=== PATIENT | male | born 1960 | race Caucasian/White ===

== ENCOUNTER 2020-03-06 11:34 | Emergency (ER) | payer MEDICARE, OTHER ==
[~2020-03-06] VITALS: Ht 188 cm; Wt 77.1 kg
[~2020-03-06 11:34] MED LIST: CYCL10 PO; HYDACE5 PO; IBUP800 PO; Keflex500 MG PO; PRED10 PO; Prilosec Otc20 MG PO; Zofran8 MG PO
[2020-03-06 12:42] LABS: BASOPHILS ABSOLUTE AUTO 0.04 K/mm3 (0.00-0.23); BASOPHILS PERCENT AUTO 0 % (0-2); EOSINOPHILS PERCENT AUTO 0 % (0-6); Hematocrit 45.4 % (37.0-53.0); Hemoglobin 15.9 g/dL (13.5-17.5); IMMATURE GRAN ABSOLUTE AUTO 0.05 K/mm3 (0.00-0.10); IMMATURE GRAN PERCENT AUTO 0 % (0-1); LYMPHOCYTES ABSOLUTE AUTO 0.58 K/mm3 (0.84-5.20); LYMPHOCYTES PERCENT AUTO 4 % (21-46); MONOCYTES PERCENT AUTO 4 % (4-13); Mean Corpuscular Volume 111 fL (80-100); Mean Platelet Volume 10.4 fL (9.1-12.4); NEUTROPHILS ABSOLUTE AUTO 13.44 K/mm3 (1.96-9.15); NEUTROPHILS PERCENT AUTO 91 % (41-73); Platelet Count 164 K/mm3 (150-400); RDW Standard Deviation 58.9 fL (35.1-46.3); Red Blood Cell Count 4.08 M/mm3 (4.30-5.90); White Blood Cell Count 14.71 K/mm3 (4.00-11.30)
[2020-03-06 12:50] LABS: Alanine Aminotransfer (ALT/SGP 49 U/L (12-78); Albumin, Blood 3.7 g/dL (3.4-5.0); Alk Phos 146 U/L (50-136); Anion Gap 12 mmol/L (6-16); Aspartate Aminotrans (AST/SGOT 80 U/L (12-37); Bilirubin, Total 1.4 mg/dL (0.1-1.0); Blood Urea Nitrogen 5 mg/dL (8-24); Bun/Creatinine Ratio 14.4 (12.0-20.0); CO2, Blood 24 mmol/L (21-32); Calcium, Blood 8.9 mg/dL (8.5-10.1); Chloride, Blood 101 mmol/L (98-108); Creatinine, Blood 0.35 mg/dL (0.60-1.20); Globulin, Blood 3.7 g/dL (2.2-4.0); Glomerular Filtration Rate >60 (60-); Glucose, Blood 96 mg/dL (70-99); Potassium, Blood 3.7 mmol/L (3.5-5.5); Sodium, Blood 137 mmol/L (136-145); Total Protein, Blood 7.4 g/dL (6.4-8.2)
[2020-03-06] MEDS ORDERED: Hydrochlorothia50 MG PO (14:57)
== END 2020-03-06 15:25 | disposition home or self-care (01) ==
LOC: ER 11:34
PROVIDERS: Emergency Medicine
DX: R04.0 Epistaxis (principal); I10 Essential (primary) hypertension; F17.200 Nicotine dependence, unspecified, uncomplicated; Z88.1 Allergy status to other antibiotic agents
CPT/HCPCS: 30903; 36415; 80053; 85025; 99283-25

== ENCOUNTER 2020-04-25 08:23 | Day surgery (SDC) | payer MEDICARE, OTHER ==
[~2020-04-25] VITALS: Ht 188 cm; Wt 89.2 kg
[~2020-04-25 08:23] MED LIST changes: +Hydrochlorothia50 MG PO
--- NOTE | 2020-04-25 09:07 | NUR ---
04/25/20 0907 Marilyn Martin CALL LIGHT WITHIN REACH
== END 2020-04-25 10:42 | disposition home or self-care (01) ==
LOC: ORSCSDS 08:23
PROVIDERS: Ophthalmology
PROC: 08RK3JZ Replacement of Left Lens with Synthetic Substitute, Percutaneous Approach (ICD-10-PCS; principal; 2020-04-25 10:00)
DX: H25.12 Age-related nuclear cataract, left eye (principal); H21.81 Floppy iris syndrome; I10 Essential (primary) hypertension; F17.210 Nicotine dependence, cigarettes, uncomplicated
CPT/HCPCS: J2001; J2250; J3010; J3301; J7040; V2632

== ENCOUNTER 2020-05-20 16:11 | Emergency (ER) | payer MEDICARE, OTHER ==
[~2020-05-20] VITALS: Ht 185.4 cm; Wt 86.2 kg
[2020-05-20 17:20] LABS: BASOPHILS ABSOLUTE AUTO 0.01 K/mm3 (0.00-0.23); BASOPHILS PERCENT AUTO 0 % (0-2); EOSINOPHILS ABSOLUTE AUTO 0.02 K/mm3 (0.00-0.68); EOSINOPHILS PERCENT AUTO 0 % (0-6); Hematocrit 45.6 % (37.0-53.0); Hemoglobin 16.1 g/dL (13.5-17.5); IMMATURE GRAN ABSOLUTE AUTO 0.05 K/mm3 (0.00-0.10); IMMATURE GRAN PERCENT AUTO 1 % (0-1); LYMPHOCYTES ABSOLUTE AUTO 1.21 K/mm3 (0.84-5.20); LYMPHOCYTES PERCENT AUTO 11 % (21-46); MONOCYTES ABSOLUTE AUTO 1.36 K/mm3 (0.16-1.47); MONOCYTES PERCENT AUTO 13 % (4-13); Mean Corpuscular HGB 36.4 pg (26.0-34.0); Mean Corpuscular HGB Conc 35.3 g/dL (31.5-36.5); Mean Corpuscular Volume 103 fL (80-100); Mean Platelet Volume 11.3 fL (9.1-12.4); NEUTROPHILS ABSOLUTE AUTO 8.12 K/mm3 (1.96-9.15); NEUTROPHILS PERCENT AUTO 75 % (41-73); Platelet Count 81 K/mm3 (150-400); RDW Coefficient Variation 12.6 % (11.7-14.2); RDW Standard Deviation 48.5 fL (35.1-46.3); Red Blood Cell Count 4.42 M/mm3 (4.30-5.90); White Blood Cell Count 10.77 K/mm3 (4.00-11.30)
[2020-05-20 17:31] LABS: Alanine Aminotransfer (ALT/SGP 29 U/L (12-78); Albumin/Globulin Ratio 1.1 (0.8-1.8); Alk Phos 122 U/L (50-136); Anion Gap 14 mmol/L (6-16); Aspartate Aminotrans (AST/SGOT 44 U/L (12-37); Bilirubin, Total 2.1 mg/dL (0.1-1.0); Blood Urea Nitrogen 16 mg/dL (8-24); Bun/Creatinine Ratio 33.1 (12.0-20.0); CO2, Blood 20 mmol/L (21-32); Calcium, Blood 9.8 mg/dL (8.5-10.1); Chloride, Blood 101 mmol/L (98-108); Creatinine, Blood 0.48 mg/dL (0.60-1.20); Ethanol (Alcohol), Blood, Med <3 mg/dL; Globulin, Blood 3.8 g/dL (2.2-4.0); Glomerular Filtration Rate >60 (60-); Glucose, Blood 83 mg/dL (70-99); Potassium, Blood 3.1 mmol/L (3.5-5.5); Sodium, Blood 135 mmol/L (136-145); Total Protein, Blood 7.8 g/dL (6.4-8.2)
[2020-05-20 17:57] LABS: Source, Urine Clean Catch
[2020-05-20 18:08] LABS: Appearance, Urine Clear (Clear); Bilirubin, Urine Neg (Neg); Blood, Urine 2+ (Neg); Color, Urine Amber (P-Yellow); Glucose Qualitative, Urine Neg (Neg); Ketones, Urine 4+ (Neg); Leukocyte Esterase, Urine 1+ (Neg); Nitrite, Urine Neg (Neg); Protein, Urine 3+ (Neg); Urobilinogen, Urine 2+ (Normal); pH, Urine 6.5 (5.0-8.0)
[2020-05-20 18:15] LABS: Bacteria Rare /hpf; Mucus Mod (0-Heavy); Squamous Epithelial Cells Not Seen /hpf (Few); White Blood Cells, Urine 0-2 /hpf (0-5)
[2020-05-20 18:23] LABS: U Amphetamine Screen Not Detected; U Barbituate Screen Not Detected; U Benzodiazapine Screen Not Detected; U Buprenorphine Screen Not Detected; U Cannabinoids Screen DETECTED; U Cocaine Screen Not Detected; U Methadone Screen Not Detected; U Methamphetamine Screen Not Detected; U Opiates Screen Not Detected; U Oxycodone Screen Not Detected; U Phencyclidine Screen Not Detected; U Propoxyphene Screen Not Detected
[2020-05-20] MEDS ORDERED: DOXYCYCLINE HY100 M1 PO (21:11)
[2020-05-21] MEDS ORDERED: DOXY100 PO (12:38)
[2020-05-21] MEDS ORDERED: PRED FORTE5 M1 LEFTEYE (13:24)
== END 2020-05-20 21:50 | disposition home or self-care (01) ==
LOC: ER 16:11
PROVIDERS: Emergency Medicine
DX: J18.9 Pneumonia, unspecified organism (principal); I10 Essential (primary) hypertension; F17.200 Nicotine dependence, unspecified, uncomplicated; Z79.899 Other long term (current) drug therapy
CPT/HCPCS: 36415; 70450; 71045; 80053; 81001; 84443; 85025; 87086; 96374; 99285-25; G0480; J2060

== ENCOUNTER 2020-05-21 06:25 | Observation (INO) | payer MEDICARE, OTHER ==
[~2020-05-21] VITALS: Ht 185.4 cm; Wt 86.2 kg
[~2020-05-21 06:25] MED LIST changes: +DOXYCYCLINE HY100 M1 PO
[2020-05-21 07:43] LABS: BASOPHILS ABSOLUTE AUTO 0.01 K/mm3 (0.00-0.23); BASOPHILS PERCENT AUTO 0 % (0-2); EOSINOPHILS ABSOLUTE AUTO 0.03 K/mm3 (0.00-0.68); EOSINOPHILS PERCENT AUTO 1 % (0-6); Hematocrit 47.2 % (37.0-53.0); Hemoglobin 16.5 g/dL (13.5-17.5); IMMATURE GRAN ABSOLUTE AUTO 0.02 K/mm3 (0.00-0.10); IMMATURE GRAN PERCENT AUTO 0 % (0-1); LYMPHOCYTES ABSOLUTE AUTO 0.79 K/mm3 (0.84-5.20); LYMPHOCYTES PERCENT AUTO 13 % (21-46); MONOCYTES ABSOLUTE AUTO 0.82 K/mm3 (0.16-1.47); MONOCYTES PERCENT AUTO 13 % (4-13); Mean Corpuscular HGB 36.4 pg (26.0-34.0); Mean Corpuscular Volume 104 fL (80-100); Mean Platelet Volume 10.5 fL (9.1-12.4); NEUTROPHILS ABSOLUTE AUTO 4.66 K/mm3 (1.96-9.15); NEUTROPHILS PERCENT AUTO 74 % (41-73); Platelet Count 92 K/mm3 (150-400); RDW Coefficient Variation 12.8 % (11.7-14.2); RDW Standard Deviation 49.6 fL (35.1-46.3); Red Blood Cell Count 4.53 M/mm3 (4.30-5.90); White Blood Cell Count 6.33 K/mm3 (4.00-11.30)
[2020-05-21 07:51] LABS: U Benzodiazapine Screen DETECTED; U Cannabinoids Screen DETECTED
[2020-05-21 07:52] LABS: U Amphetamine Screen Not Detected; U Barbituate Screen Not Detected; U Buprenorphine Screen Not Detected; U Cocaine Screen Not Detected; U Methadone Screen Not Detected; U Methamphetamine Screen Not Detected; U Opiates Screen Not Detected; U Oxycodone Screen Not Detected; U Phencyclidine Screen Not Detected; U Propoxyphene Screen Not Detected
[2020-05-21 08:04] LABS: Acetaminophen, Random <2.0 ug/mL (10.0-30.0); Alanine Aminotransfer (ALT/SGP 32 U/L (12-78); Albumin, Blood 3.7 g/dL (3.4-5.0); Albumin/Globulin Ratio 0.9 (0.8-1.8); Alk Phos 121 U/L (50-136); Anion Gap 12 mmol/L (6-16); Aspartate Aminotrans (AST/SGOT 51 U/L (12-37); Bilirubin, Total 1.8 mg/dL (0.1-1.0); Blood Urea Nitrogen 17 mg/dL (8-24); Bun/Creatinine Ratio 34.2 (12.0-20.0); CO2, Blood 24 mmol/L (21-32); Calcium, Blood 9.7 mg/dL (8.5-10.1); Chloride, Blood 101 mmol/L (98-108); Ethanol (Alcohol), Blood, Med <3 mg/dL; Globulin, Blood 4.1 g/dL (2.2-4.0); Glomerular Filtration Rate >60 (60-); Glucose, Blood 135 mg/dL (70-99); Potassium, Blood 2.8 mmol/L (3.5-5.5); Salicylate 4.3 mg/dL (2.8-20.0); Sodium, Blood 137 mmol/L (136-145); Thyroxine (T4) 10.8 ug/dL (4.5-12.1); Total Protein, Blood 7.8 g/dL (6.4-8.2)
[2020-05-21 08:12] LABS: Influenza A, PCR Negative (NEGATIVE); Influenza B, PCR Negative (NEGATIVE); Resp Syncytial Virus, PCR Negative (NEGATIVE); SARS-Cov-2 (COVID-19) PCR, MMC Negative (NEGATIVE)
[2020-05-21] MEDS ORDERED: DOXY100 PO (12:38)
[2020-05-21] MEDS ORDERED: PRED FORTE5 M1 LEFTEYE (13:24)
== END 2020-05-23 12:38 | disposition home or self-care (01) ==
LOC: ER 06:25 → EOR 06:26
PROVIDERS: ADMIT Emergency Medicine
DX: F23 Brief psychotic disorder (principal); F12.10 Cannabis abuse, uncomplicated; F17.210 Nicotine dependence, cigarettes, uncomplicated; G89.29 Other chronic pain; M54.9 Dorsalgia, unspecified; Z20.828 Contact with and (suspected) exposure to other viral communicable diseases; Z88.1 Allergy status to other antibiotic agents; Z79.899 Other long term (current) drug therapy; Z59.0 Homelessness
CPT/HCPCS: 0241U; 36415; 80053; 84436; 84443; 85025; 99285; A9270; G0378; G0480; Q3014

== ENCOUNTER 2021-04-12 15:27 | Emergency (ER) | payer OTHER, MEDICARE ==
[~2021-04-12] VITALS: Ht 188 cm; Wt 108.9 kg
[~2021-04-12 15:27] MED LIST changes: +DOXY100 PO; +PRED FORTE5 M1 LEFTEYE
[2021-04-12 16:12] LABS: BASOPHILS PERCENT AUTO 0 % (0-2); EOSINOPHILS ABSOLUTE AUTO 0.01 K/mm3 (0.00-0.68); EOSINOPHILS PERCENT AUTO 0 % (0-6); Hematocrit 43.7 % (37.0-53.0); Hemoglobin 15.4 g/dL (13.5-17.5); IMMATURE GRAN ABSOLUTE AUTO 0.02 K/mm3 (0.00-0.10); IMMATURE GRAN PERCENT AUTO 0 % (0-1); LYMPHOCYTES ABSOLUTE AUTO 0.83 K/mm3 (0.84-5.20); LYMPHOCYTES PERCENT AUTO 14 % (21-46); MONOCYTES ABSOLUTE AUTO 0.49 K/mm3 (0.16-1.47); MONOCYTES PERCENT AUTO 8 % (4-13); Mean Corpuscular HGB 36.2 pg (26.0-34.0); Mean Corpuscular HGB Conc 35.2 g/dL (31.5-36.5); Mean Corpuscular Volume 103 fL (80-100); Mean Platelet Volume 12.1 fL (9.1-12.4); NEUTROPHILS ABSOLUTE AUTO 4.62 K/mm3 (1.96-9.15); NEUTROPHILS PERCENT AUTO 77 % (41-73); RDW Coefficient Variation 13.2 % (11.7-14.2); RDW Standard Deviation 50.6 fL (35.1-46.3); Red Blood Cell Count 4.26 M/mm3 (4.30-5.90); White Blood Cell Count 5.97 K/mm3 (4.00-11.30)
[2021-04-12 16:17] LABS: Platelet Count 37 K/mm3 (150-400)
[2021-04-12 16:31] LABS: Alanine Aminotransfer (ALT/SGP 111 U/L (12-78); Albumin, Blood 3.9 g/dL (3.4-5.0); Alk Phos 161 U/L (50-136); Anion Gap 19 mmol/L (6-16); Aspartate Aminotrans (AST/SGOT 179 U/L (12-37); Bilirubin, Total 2.4 mg/dL (0.1-1.0); Blood Urea Nitrogen 12 mg/dL (8-24); Bun/Creatinine Ratio 19.8 (12.0-20.0); CO2, Blood 20 mmol/L (21-32); Calcium, Blood 9.4 mg/dL (8.5-10.1); Chloride, Blood 90 mmol/L (98-108); Creatinine, Blood 0.61 mg/dL (0.60-1.20); Ethanol (Alcohol), Blood, Med <3 mg/dL; Globulin, Blood 3.9 g/dL (2.2-4.0); Glomerular Filtration Rate >60 (60-); Glucose, Blood 116 mg/dL (70-99); Potassium, Blood 3.2 mmol/L (3.5-5.5); Sodium, Blood 129 mmol/L (136-145); Total Protein, Blood 7.8 g/dL (6.4-8.2)
[2021-04-12 17:22] LABS: Source, Urine Clean Catch
[2021-04-12 17:25] LABS: Appearance, Urine Clear (Clear); Bilirubin, Urine Neg (Neg); Blood, Urine 4+ (Neg); Color, Urine Yellow (P-Yellow); Glucose Qualitative, Urine Neg (Neg); Ketones, Urine 4+ (Neg); Leukocyte Esterase, Urine Neg (Neg); Nitrite, Urine Neg (Neg); Protein, Urine 3+ (Neg); Specific Gravity, Urine 1.015 (1.003-1.022); Urobilinogen, Urine 1+ (Normal); pH, Urine 6.5 (5.0-8.0)
[2021-04-12 17:34] LABS: Bacteria Few /hpf; Hyaline Casts 0-2 /lpf (0-2); Squamous Epithelial Cells Rare /hpf (Few); White Blood Cells, Urine 0-2 /hpf (0-5)
[2021-04-12 17:38] LABS: U Cannabinoids Screen DETECTED
[2021-04-12 17:39] LABS: U Amphetamine Screen Not Detected; U Barbituate Screen Not Detected; U Benzodiazapine Screen Not Detected; U Buprenorphine Screen Not Detected; U Cocaine Screen Not Detected; U Methadone Screen Not Detected; U Methamphetamine Screen Not Detected; U Opiates Screen Not Detected; U Oxycodone Screen Not Detected; U Phencyclidine Screen Not Detected; U Propoxyphene Screen Not Detected
== END 2021-04-12 20:31 | disposition home or self-care (01) ==
LOC: ER 15:27
PROVIDERS: Emergency Medicine
DX: R40.4 Transient alteration of awareness (principal); I10 Essential (primary) hypertension; F17.200 Nicotine dependence, unspecified, uncomplicated; Z88.1 Allergy status to other antibiotic agents; Z79.899 Other long term (current) drug therapy; V27.9XXA Unspecified motorcycle rider injured in collision with fixed or stationary object in traffic accident, initial encounter
CPT/HCPCS: 70450; 71260; 72125; 74177; 80053; 81001; 85025; 93005; 93010; 99284-25; G0480; J7030; Q9967

== ENCOUNTER 2021-05-06 16:32 | Emergency (ER) | payer MEDICARE, OTHER ==
[~2021-05-06] VITALS: Ht 177.8 cm; Wt 77.1 kg
[2021-05-06 16:53] LABS: BASOPHILS ABSOLUTE AUTO 0.02 K/mm3 (0.00-0.23); BASOPHILS PERCENT AUTO 0 % (0-2); EOSINOPHILS ABSOLUTE AUTO 0.02 K/mm3 (0.00-0.68); EOSINOPHILS PERCENT AUTO 0 % (0-6); Hematocrit 48.3 % (37.0-53.0); IMMATURE GRAN ABSOLUTE AUTO 0.05 K/mm3 (0.00-0.10); IMMATURE GRAN PERCENT AUTO 1 % (0-1); LYMPHOCYTES ABSOLUTE AUTO 0.77 K/mm3 (0.84-5.20); LYMPHOCYTES PERCENT AUTO 9 % (21-46); MONOCYTES ABSOLUTE AUTO 0.42 K/mm3 (0.16-1.47); MONOCYTES PERCENT AUTO 5 % (4-13); Mean Corpuscular HGB 35.7 pg (26.0-34.0); Mean Corpuscular HGB Conc 33.1 g/dL (31.5-36.5); Mean Corpuscular Volume 108 fL (80-100); Mean Platelet Volume 10.4 fL (9.1-12.4); NEUTROPHILS ABSOLUTE AUTO 7.49 K/mm3 (1.96-9.15); NEUTROPHILS PERCENT AUTO 85 % (41-73); Platelet Count 128 K/mm3 (150-400); RDW Coefficient Variation 14.4 % (11.7-14.2); RDW Standard Deviation 57.7 fL (35.1-46.3); Red Blood Cell Count 4.48 M/mm3 (4.30-5.90); White Blood Cell Count 8.77 K/mm3 (4.00-11.30)
[2021-05-06 17:45] LABS: Anion Gap 13 mmol/L (6-16); Blood Urea Nitrogen 9 mg/dL (8-24); Bun/Creatinine Ratio 14.3 (12.0-20.0); CO2, Blood 26 mmol/L (21-32); Calcium, Blood 9.2 mg/dL (8.5-10.1); Chloride, Blood 103 mmol/L (98-108); Creatinine, Blood 0.63 mg/dL (0.60-1.20); Ethanol (Alcohol), Blood, Med 42 mg/dL; Glomerular Filtration Rate >60 (60-); Glucose, Blood 119 mg/dL (70-99); Potassium, Blood 3.6 mmol/L (3.5-5.5); Sodium, Blood 142 mmol/L (136-145)
== END 2021-05-06 18:55 | disposition home or self-care (01) ==
LOC: ER 16:32
PROVIDERS: Student in an Organized Health Care Education/Training Program
DX: S12.301A Unspecified nondisplaced fracture of fourth cervical vertebra, initial encounter for closed fracture (principal); S12.401A Unspecified nondisplaced fracture of fifth cervical vertebra, initial encounter for closed fracture; I10 Essential (primary) hypertension; F17.210 Nicotine dependence, cigarettes, uncomplicated; W20.8XXA Other cause of strike by thrown, projected or falling object, initial encounter
CPT/HCPCS: 70450; 72125; 80048; 85025; 96374; 99285-25; G0480; J2270

== ENCOUNTER 2021-05-11 10:52 | Emergency (ER) | payer MEDICARE, OTHER ==
[~2021-05-11] VITALS: Ht 188 cm; Wt 86.2 kg
[2021-05-11 11:42] LABS: BASOPHILS ABSOLUTE AUTO 0.02 K/mm3 (0.00-0.23); BASOPHILS PERCENT AUTO 0 % (0-2); EOSINOPHILS ABSOLUTE AUTO 0.02 K/mm3 (0.00-0.68); EOSINOPHILS PERCENT AUTO 0 % (0-6); Hematocrit 44.2 % (37.0-53.0); Hemoglobin 15.7 g/dL (13.5-17.5); IMMATURE GRAN ABSOLUTE AUTO 0.03 K/mm3 (0.00-0.10); IMMATURE GRAN PERCENT AUTO 0 % (0-1); LYMPHOCYTES ABSOLUTE AUTO 0.87 K/mm3 (0.84-5.20); LYMPHOCYTES PERCENT AUTO 12 % (21-46); MONOCYTES ABSOLUTE AUTO 0.65 K/mm3 (0.16-1.47); MONOCYTES PERCENT AUTO 9 % (4-13); Mean Corpuscular HGB 36.5 pg (26.0-34.0); Mean Corpuscular HGB Conc 35.5 g/dL (31.5-36.5); Mean Corpuscular Volume 103 fL (80-100); Mean Platelet Volume 10.4 fL (9.1-12.4); NEUTROPHILS ABSOLUTE AUTO 5.65 K/mm3 (1.96-9.15); NEUTROPHILS PERCENT AUTO 78 % (41-73); Platelet Count 176 K/mm3 (150-400); RDW Coefficient Variation 13.6 % (11.7-14.2); RDW Standard Deviation 52.3 fL (35.1-46.3); White Blood Cell Count 7.24 K/mm3 (4.00-11.30)
[2021-05-11 12:03] LABS: Alanine Aminotransfer (ALT/SGP 39 U/L (12-78); Albumin, Blood 3.5 g/dL (3.4-5.0); Albumin/Globulin Ratio 0.9 (0.8-1.8); Alk Phos 141 U/L (50-136); Anion Gap 14 mmol/L (6-16); Aspartate Aminotrans (AST/SGOT 45 U/L (12-37); Bilirubin, Total 1.9 mg/dL (0.1-1.0); Blood Urea Nitrogen 13 mg/dL (8-24); Bun/Creatinine Ratio 27.4 (12.0-20.0); CO2, Blood 26 mmol/L (21-32); Calcium, Blood 9.5 mg/dL (8.5-10.1); Chloride, Blood 96 mmol/L (98-108); Creatinine, Blood 0.48 mg/dL (0.60-1.20); Globulin, Blood 3.9 g/dL (2.2-4.0); Glomerular Filtration Rate >60 (60-); Glucose, Blood 148 mg/dL (70-99); Potassium, Blood 3.3 mmol/L (3.5-5.5); Sodium, Blood 136 mmol/L (136-145); Total Protein, Blood 7.4 g/dL (6.4-8.2); Troponin I <0.015 ng/mL (0.000-0.040)
[2021-05-11 12:26] LABS: Influenza A, PCR NEGATIVE (NEGATIVE); Influenza B, PCR NEGATIVE (NEGATIVE); Resp Syncytial Virus, PCR NEGATIVE (NEGATIVE); SARS-Cov-2 (COVID-19) PCR, MMC NEGATIVE (NEGATIVE)
[2021-05-11] MEDS ORDERED: PRED20 PO (12:51)
[2021-05-11] MEDS ORDERED: ALBU90OI INH (12:51)
[2021-05-11] MEDS ORDERED: AZIT500 PO (13:19)
== END 2021-05-11 14:33 | disposition home or self-care (01) ==
LOC: ER 10:52
PROVIDERS: Physician Assistant
DX: J44.1 Chronic obstructive pulmonary disease with (acute) exacerbation (principal); I10 Essential (primary) hypertension; Z88.1 Allergy status to other antibiotic agents; Z87.891 Personal history of nicotine dependence; Z20.822 Contact with and (suspected) exposure to COVID-19
CPT/HCPCS: 0241U; 36415; 71045; 80053; 84484; 85025; 87070; 87077; 87185; 87186; 87205; 93005; 93010; 94640; 99284-25; A9270

== ENCOUNTER 2021-09-15 11:56 | Inpatient (IN) | payer MEDICARE, OTHER ==
[~2021-09-15] VITALS: Ht 188 cm; Wt 99.5 kg
[~2021-09-15 11:56] MED LIST changes: +ALBU90OI INH; +AZIT500 PO; +PRED20 PO
[2021-09-15 12:41] LABS: Hematocrit 41.8 % (37.0-53.0); Hemoglobin 14.7 g/dL (13.5-17.5); Mean Corpuscular HGB 33.7 pg (26.0-34.0); Mean Corpuscular HGB Conc 35.2 g/dL (31.5-36.5); Mean Corpuscular Volume 96 fL (80-100); Mean Platelet Volume 9.8 fL (9.1-12.4); Platelet Count 179 K/mm3 (150-400); RDW Coefficient Variation 13.2 % (11.7-14.2); Red Blood Cell Count 4.36 M/mm3 (4.30-5.90); White Blood Cell Count 22.38 K/mm3 (4.00-11.30)
[2021-09-15 13:00] LABS: Alanine Aminotransfer (ALT/SGP 81 U/L (12-78); Albumin, Blood 2.5 g/dL (3.4-5.0); Albumin/Globulin Ratio 0.6 (0.8-1.8); Alk Phos 130 U/L (50-136); Anion Gap 12 mmol/L (6-16); Aspartate Aminotrans (AST/SGOT 74 U/L (12-37); Bilirubin, Total 1.1 mg/dL (0.1-1.0); Blood Urea Nitrogen 15 mg/dL (8-24); Bun/Creatinine Ratio 26.1 (12.0-20.0); CO2, Blood 25 mmol/L (21-32); Calcium, Blood 8.3 mg/dL (8.5-10.1); Chloride, Blood 95 mmol/L (98-108); Creatinine, Blood 0.58 mg/dL (0.60-1.20); Globulin, Blood 3.9 g/dL (2.2-4.0); Glomerular Filtration Rate >60 (60-); Glucose, Blood 104 mg/dL (70-99); Sodium, Blood 132 mmol/L (136-145); Total Protein, Blood 6.4 g/dL (6.4-8.2)
[2021-09-15 13:12] LABS: BAND PERCENT MAN 19 % (0-8); BASOPHILS PERCENT MAN 0 % (0-2); EOSINOPHILS PERCENT MAN 0 % (0-6); LYMPHOCYTES ABSOLUTE MAN 2.23 K/mm3 (0.84-5.20); LYMPHOCYTES PERCENT MAN 10 % (21-46); MONOCYTES ABSOLUTE MAN 1.79 K/mm3 (0.16-1.47); MONOCYTES PERCENT MAN 8 % (4-13); NEUTROPHILS ABSOLUTE MAN 18.35 K/mm3 (1.96-9.15); SEG NEUTROPHILS PERCENT MAN 63 % (41-73); TOTAL CELLS COUNTED 100
[2021-09-15] MEDS ORDERED: CYCLOBENZAPRINE5 MG PO (13:28)
[2021-09-15] MEDS ORDERED: HYDROCODONE-AC1 EAC7 PO (13:28)
[2021-09-15 14:29] LABS: Magnesium, Blood 1.5 mg/dL (1.6-2.4); Phosphorus, Blood 1.6 mg/dL (2.5-4.9)
[2021-09-15 14:34] LABS: International Normalized Ratio 1.78
--- NOTE | 2021-09-15 17:25 | NUR ---
09/15/21 1725 Timmy Magana PT ON MX SCEDULED ANTIBIOTICS
--- NOTE | 2021-09-15 20:20 | NUR ---
PATIENT HR UP TO 160'S FOR ABOUT 3 SECONDS; PATIENT ASYMPTOMATIC
--- NOTE | 2021-09-15 21:36 | NUR ---
ASSUMED CARE OF PATIENT AT APPROIMATELY 1909 FROM MIMI Shultz RN. PATIENT ALERT AND ORIENTED X4. PATIENT CURRENTLY DENIES. REPORTS CHRONIC NUMBNESS AND TINGLING IN DIFFERENT EXTREMETIES SINCE BACK SURGERY LAST YEAR. PATIENT DENIES DIZZINESS AND NAUSEA. PATIENT REPORTS LAST DRINK OF ETOH LAST NIGHT; NO S/S OF WITHDRAWAL AT THIS TIME. PIV X2 INFUSING IV ABX, LR, AND ELECTROTES PER ORDER. NS ON TELE; OXYGEN SATURATION ABOVE 90% ROOM AIR; WHEN PATIENT FALLS ASLEEP 2LPM VIA NC. LEFT FOREARM HAS WOUND VAC; LEFT ARM SWOLLEN AND PATIENT REPORTS IT HAS IMPROVED; WOUND VAC DRAINING RED OUTPUT. SCDS ON. ADMISSION COMPLETE.
--- NOTE | 2021-09-16 02:45 | NUR ---
PT IS ALERT AND ORIENTED. CLEAR LUNG SOUNDS ON RIGHT SIDE AND COARSE ON THE LEFT. PT STATED THAT DOCTORS TOLD HIM THAT "HE HAD COPD, BUT IT'S HARD TO TELL". PT REPOSITIONED Q2H AND NEEDS CALDERON CHANGED DUE TO WOUND DRAINAGE.
[2021-09-16 04:11] LABS: Hematocrit 37.6 % (37.0-53.0); Hemoglobin 12.7 g/dL (13.5-17.5); Mean Corpuscular HGB 32.5 pg (26.0-34.0); Mean Corpuscular HGB Conc 33.8 g/dL (31.5-36.5); Mean Corpuscular Volume 96 fL (80-100); Mean Platelet Volume 10.2 fL (9.1-12.4); Platelet Count 189 K/mm3 (150-400); RDW Coefficient Variation 13.3 % (11.7-14.2); RDW Standard Deviation 46.7 fL (35.1-46.3); Red Blood Cell Count 3.91 M/mm3 (4.30-5.90); White Blood Cell Count 20.56 K/mm3 (4.00-11.30)
[2021-09-16 04:30] LABS: Alanine Aminotransfer (ALT/SGP 88 U/L (12-78); Albumin, Blood 2.1 g/dL (3.4-5.0); Albumin/Globulin Ratio 0.6 (0.8-1.8); Alk Phos 181 U/L (50-136); Anion Gap 6 mmol/L (6-16); Aspartate Aminotrans (AST/SGOT 98 U/L (12-37); Bilirubin, Total 0.8 mg/dL (0.1-1.0); Blood Urea Nitrogen 15 mg/dL (8-24); CO2, Blood 29 mmol/L (21-32); Calcium, Blood 8.1 mg/dL (8.5-10.1); Chloride, Blood 102 mmol/L (98-108); Creatinine, Blood 0.58 mg/dL (0.60-1.20); Globulin, Blood 3.5 g/dL (2.2-4.0); Glomerular Filtration Rate >60 (60-); Glucose, Blood 138 mg/dL (70-99); Potassium, Blood 3.6 mmol/L (3.5-5.5); Sodium, Blood 137 mmol/L (136-145); Total Protein, Blood 5.6 g/dL (6.4-8.2)
--- NOTE | 2021-09-16 06:29 | NUR ---
PATIENT SLEPT ABOUT SIX HOURS LAST NIGHT; MEDICATED TWICE FOR PAIN. NO OTHER ACUTE CHANGES TO REPORT
--- NOTE | 2021-09-16 10:53 | NUR ---
AM NOTE: ALERT AND ORIENTED X4. PERRLA. OVERALL WEAK. HISTORY OF CERVICAL INJURY. REHAB IN PROGRESS. NUMBNESS AND TINGLING TO EXTREMITIES. USES CANE AT BASELINE. ON ROOM AIR SATING MID 90'S. DENIES COUGH. LUNGS SOUNDING SLIGHTLY COARSE. TELE SHOWING SINUS RHYTHM - SINUS TACH, WITH HR 90-110'S, BP STABLE. DENIES CHEST PAIN/PRESSURE. DENIES ABDOMINAL PAIN/NAUSEA. USING URINAL IN BED. GOOD URINE OUTPUT. SKIN OVERALL RED AND BRUISED. WOUND VAC TO LEFT FOREARM TO CONTINOUS SUCTION AT 120 MMHG WITH MODERATE SEROSANG OUTPUT. PATIENT COMPLAINS OF PAIN TO LEFT ARM, MEDICATED WITH TYLENOL WITH SOME RELIEF. DENIES NEEDS FOR STRONGER PAIN MEDS AT THIS TIME. CALL LIGHT IN REACH. ANTIBIOTICS INFUSING WELL LR AT 125 ML/HR. DENIES NEEDS AT THIS TIME. TOLERATING PO DIET. WILL CONTINUE TO MONITOR.
--- NOTE | 2021-09-16 12:31 | NUR ---
DR. LAL AND DR. LEIJA IN ROOM AT THIS TIME, UPDATING PATIENT ON PLAN OF CARE. PATIENT VERY SATISFIED WITH DOCTORS AND REPORTS TO THIS RN HIS GRATITUDE. NO NEW ORDERS AT THIS TIME. POSSIBLE CT SCAN OF LEFT ELBOW AND SURGERY IN AM WITH DR. LEIJA. WOUND VAC REMAINS IN PLACE. NO CHANGES TO SETTINGS. LEFT ELBOW/FOREARM REMAINS ECCHYMOTIC WITH SOME WEEPING ON THE ANTERIOR SIDE, CHANGING DISPOSABLE CALDERON Q2 HOURS. DRAINAGE CLEAR AND YELLOW TINGED. DR. LEIJA AWARE. ZOSYN INFUSING AT THIS TIME. VITAL SIGNS STABLE MORPHINE GIVEN ONCE FOR LEFT ARM PAIN.
--- NOTE | 2021-09-16 17:28 | NUR ---
SHIFT SUMMARY: NO ACUTE CHANGES. SEE PREVIOUS NOTES. DENIES NEEDS FOR PAIN MEDICATION. VITAL SIGNS STABLE. WOUND VAC REMAINS UNCHANGED. EATING DINNER AT THIS TIME. LR INFUSING AT 70 ML/HR, ANTIBIOTICS INFUSED. WILL CONTINUE TO MONITOR AND REPORT OFF TO ONCOMING RN.
--- NOTE | 2021-09-16 23:22 | NUR ---
Assumed care of pt at 1900. NEURO: A/Ox4, cooperative with care. Numbness/tingling to extremities from previous spinal fracture, arms worse than legs. PAIN: Reports 7/8 pain in L forearm/elbow. Medicated with PRN's and repositioned as tolerated. RESP: Coarse ls t/o, denies any SOB and sats above 94% on RA. Former smoker who quit 8 months ago. CARDIOVASCULAR: SR on Tele, denies any CP/Pressure. Strong +2 pulses t/o including affected arm. 2+ pitting edema L arm that pt reports looks better than it did yesterday. INTEGUMENTARY: Dry/flaking skin. Ecchymosis scattered t/o both arms from his previous fall. L lateral forearm with wound vac in place set at 120mmHg with no apparent leaks. Redness and swelling persists. L dorsal forearm with scattered blisters draining serous fluid requiring multiple pads to be changed out from fluid leakage. MD is aware. Will update as changes occur.
[2021-09-17 05:14] LABS: BASOPHILS ABSOLUTE AUTO 0.03 K/mm3 (0.00-0.23); BASOPHILS PERCENT AUTO 0 % (0-2); EOSINOPHILS ABSOLUTE AUTO 0.02 K/mm3 (0.00-0.68); EOSINOPHILS PERCENT AUTO 0 % (0-6); Hematocrit 33.1 % (37.0-53.0); Hemoglobin 11.2 g/dL (13.5-17.5); IMMATURE GRAN ABSOLUTE AUTO 0.08 K/mm3 (0.00-0.10); IMMATURE GRAN PERCENT AUTO 1 % (0-1); LYMPHOCYTES ABSOLUTE AUTO 0.76 K/mm3 (0.84-5.20); LYMPHOCYTES PERCENT AUTO 6 % (21-46); MONOCYTES PERCENT AUTO 7 % (4-13); Mean Corpuscular HGB 32.7 pg (26.0-34.0); Mean Corpuscular HGB Conc 33.8 g/dL (31.5-36.5); Mean Corpuscular Volume 97 fL (80-100); Mean Platelet Volume 10.6 fL (9.1-12.4); NEUTROPHILS ABSOLUTE AUTO 10.43 K/mm3 (1.96-9.15); NEUTROPHILS PERCENT AUTO 85 % (41-73); Platelet Count 190 K/mm3 (150-400); RDW Coefficient Variation 13.6 % (11.7-14.2); RDW Standard Deviation 48.2 fL (35.1-46.3); Red Blood Cell Count 3.43 M/mm3 (4.30-5.90); White Blood Cell Count 12.22 K/mm3 (4.00-11.30)
[2021-09-17 05:41] LABS: Anion Gap 4 mmol/L (6-16); Blood Urea Nitrogen 25 mg/dL (8-24); Bun/Creatinine Ratio 21.9 (12.0-20.0); CO2, Blood 31 mmol/L (21-32); Calcium, Blood 7.8 mg/dL (8.5-10.1); Chloride, Blood 102 mmol/L (98-108); Creatinine, Blood 1.14 mg/dL (0.60-1.20); Glomerular Filtration Rate >60 (60-); Glucose, Blood 107 mg/dL (70-99); Phosphorus, Blood 1.9 mg/dL (2.5-4.9); Potassium, Blood 3.1 mmol/L (3.5-5.5); Sodium, Blood 137 mmol/L (136-145)
[2021-09-17 08:40] LABS: Vancomycin, Trough 34.4 ug/mL (5.0-10.0)
--- NOTE | 2021-09-17 09:35 | NUR ---
AM NOTE PATIENT IS A&O X4, PLEASANT AND COOPERATIVE W CARE. VSS. TELE NSR 60'S. SPO2 >90% RA. VSS. DENIES CP/PRESSURE, N/V, SOB; BUT DOES REPORT NUMBNESS/TINGLING TO BLE AND BUE POST RECENT FALLS. SCATERRED EXPIRATORY WHEEZES T/O LUNG GARCIA. TENDERNESS, EDEMA PRESENT TO LEFT FOREARM. WOUND VAC RUNNING AT LEFT FOREARM AT 120 MMHG, DRAINING SEROSINGUINOUS FLUID. MINIMAL LEAKAGE TO HIS ANTERIOR FOREARM. USING URINAL AT BEDSIDE. REMAINS NPO AWAITING CT SCAN AND POSSIBLE PROCEDURE TO HIS LEFT FOREARM.
--- NOTE | 2021-09-17 16:12 | NUR ---
SHIFT SUMMARY PATIENT REMAINED A&OX4 T/O SHIFT. VSS. TELE NSR IN 80'S. SPO2 >95% RA. WOUND VAC TO LEFT FOREAM DRAINING AT 120 MMHG SEROSENGUINOUS LIQUID. PROCEDURE FOR THE ARM WAS POSTPONED UNTIL TOMORROW, PATIENT IS TO BE NPO AFTER MIDNIGHT. PAIN REPORTED TO THE LEFT ARM, GAVE MEDICATIONS PER EMAR. CT COMPLETED DURING THE SHIFT. NO ACUTE CHANGES TODAY. KILN FEEDER GAVE A LIST OF HOUSING RESOURCES TO THE PATIENT. WILL CONTINUE TO MONITOR UNTIL SHIFT CHANGE.
--- NOTE | 2021-09-17 18:58 | NUR ---
I HAVE REVIEWED THE NURSING STUDENTS DOCUMENTATION AND AM IN AGREEMENT. WOUND VAC IN PLACE TO LEFT FOREARM; MINIMAL OUTPUT FROM ANTERIOR FOREARM. PT REPOSITION Q2 HOURS FOR COMFORT.
--- NOTE | 2021-09-17 21:20 | NUR ---
Assumed care of pt at 1900. No changes since my previous assessment. Continues to have pain in L arm, treating with elevation and EMAR with good relief. Minimal drainage on dorsal side of the forearm compared to last night. Pt will be NPO at midnight for procedure in AM. Will update as changes occur.
[2021-09-18 05:09] LABS: Hematocrit 36.1 % (37.0-53.0); Hemoglobin 12.3 g/dL (13.5-17.5); Mean Corpuscular HGB 33.2 pg (26.0-34.0); Mean Corpuscular HGB Conc 34.1 g/dL (31.5-36.5); Mean Corpuscular Volume 98 fL (80-100); Mean Platelet Volume 10.7 fL (9.1-12.4); Platelet Count 215 K/mm3 (150-400); RDW Coefficient Variation 13.9 % (11.7-14.2); RDW Standard Deviation 50.3 fL (35.1-46.3); White Blood Cell Count 9.56 K/mm3 (4.00-11.30)
[2021-09-18 05:42] LABS: Anion Gap 7 mmol/L (6-16); Blood Urea Nitrogen 24 mg/dL (8-24); CO2, Blood 28 mmol/L (21-32); Calcium, Blood 8.1 mg/dL (8.5-10.1); Chloride, Blood 106 mmol/L (98-108); Glomerular Filtration Rate 48 (60-); Glucose, Blood 83 mg/dL (70-99); Phosphorus, Blood 3.3 mg/dL (2.5-4.9); Potassium, Blood 3.4 mmol/L (3.5-5.5); Sodium, Blood 141 mmol/L (136-145)
--- NOTE | 2021-09-18 08:13 | NUR ---
AM NOTE PATIENT A&OX4, PLEASANT AND COOPERATIVE W CARE. VSS. TELE NSR 70'S. SPO2 >95% RA. DENIES CP/PRESSURE, SOB, N/V, BUT DOES REPORT NUMBNESS/TINGLING TO UPPER EXTREMITIES B/L. WOUND VAC TO LEFT ARM AT 120 MMHG DRAINING SEROSENGUINEOUS FLUID. URINATING AT BEDSIDE VIA URINAL. IV SITES PATENT. PATIENT REMAINS NPO THIS AM FOR PROCEDURE ON HIS LEFT ARM.
[2021-09-18 08:20] LABS: Influenza A, PCR NEGATIVE (NEGATIVE); Influenza B, PCR NEGATIVE (NEGATIVE); Resp Syncytial Virus, PCR NEGATIVE (NEGATIVE); SARS-Cov-2 (COVID-19) PCR, MMC NEGATIVE (NEGATIVE)
--- NOTE | 2021-09-18 11:24 | NUR ---
BROUGHT TO [facility] ADMISSION TO UNIT STARTED.
--- NOTE | 2021-09-18 17:42 | NUR ---
SHIFT SUMMARY PATIENT REMAINED A&OX2, COOPERATIVE AND PLEASANT W CARE. VSS. TELE NSR 90'S. SPO2>95% RA. PATIENT UNDERWENT IRRIGATION AND DRAINIAGE TODAY. PATIENT NOW HAS A ALEJANDRO DRESSING ON W MINIMAL SENGUINOUS DRAINIAGE TO THE DRESSING. PATIENT HAS BEEN C/O OF LA PAIN, HE HAS BEEN MEDICATED PER EMAR ORDERS. PATIENT DENIED CP/PRESSURE, N/V, SOB. HE CONTINUES TO REPORT NUMBNESS/TINGLING TO THE UPPER EXTREMITIES POST HIS CERVICAL FX. PATIENT TRANSFERED TO SURGICAL FLOOR AT 1730.
--- NOTE | 2021-09-18 18:16 | NUR ---
I have reviewed the [employer] documentation and am in agreement. Pt to surgery this morning, back to room with melinda drain with minimal red drainage surrounding the dressing, reinforced by TARE WEIGHERMD aware. pt reporting pain to left forearm, medicated per emar. LUE elevated per orders. repositioned for comfort. Pt transfered to room 228, bedside reprot given to IFTIKHAR Osorio.
--- NOTE | 2021-09-19 04:47 | NUR ---
BLOCK BREAKER SUMMARY NO ACUTE CHANGES THIS SHIFT. PT AAOX4 AND STANDBY ASSIST TO BSC. ALEJANDRO DRAIN TO LUE WNL, MINIMAL AMOUNTS OF DRAINAGE NOTED TO DRESSING. MEDICATED FOR PAIN X1 PER EMAR. PT HAD LARGE BM THIS SHIFT, FIRST BM SINCE BEFORE ADMIT. VSS, WILL CONTINUE TO MONITOR.
[2021-09-19 04:58] LABS: Hematocrit 36.4 % (37.0-53.0); Hemoglobin 12.5 g/dL (13.5-17.5); Mean Corpuscular HGB 33.2 pg (26.0-34.0); Mean Corpuscular HGB Conc 34.3 g/dL (31.5-36.5); Mean Corpuscular Volume 97 fL (80-100); Mean Platelet Volume 10.4 fL (9.1-12.4); Platelet Count 268 K/mm3 (150-400); RDW Coefficient Variation 13.9 % (11.7-14.2); RDW Standard Deviation 49.1 fL (35.1-46.3); Red Blood Cell Count 3.77 M/mm3 (4.30-5.90)
[2021-09-19 05:17] LABS: Albumin, Blood 2.1 g/dL (3.4-5.0); Anion Gap 7 mmol/L (6-16); Blood Urea Nitrogen 22 mg/dL (8-24); Bun/Creatinine Ratio 16.9 (12.0-20.0); CO2, Blood 29 mmol/L (21-32); Calcium, Blood 8.1 mg/dL (8.5-10.1); Chloride, Blood 102 mmol/L (98-108); Glomerular Filtration Rate 56 (60-); Glucose, Blood 113 mg/dL (70-99); Phosphorus, Blood 3.5 mg/dL (2.5-4.9); Potassium, Blood 3.3 mmol/L (3.5-5.5); Sodium, Blood 138 mmol/L (136-145)
--- NOTE | 2021-09-19 19:22 | NUR ---
SHIFT SUMMARY POD1 L ARM I&D #2, A/OX4, VSS, TOLERATING PO, USES URINAL, PAIN WELL MANAGED. IV ABX TODAY, DRESSING CHANGE SCHEDULED FOR POD4 PER SURGEON. NO ACUTE EVENTS TODAY, REPORT GIVEN TO BRITTANY BUITRAGO.
--- NOTE | 2021-09-20 05:24 | NUR ---
POWERHOUSE OPERATOR SUMMARY PATIENT A&O X4. VSS. PATIENT CONTINUES TO RECIEVE IV ANTIBIOTICS FOR INFECTION IN LEFT ARM. A MODERATE AMOUNT OF SEROSANGUINOUS DRAINAGE HAS SOAKED THROUGH THE INCISION SITE DRESSING ON PATIENT'S LEFT ARM. HE REPORTED 8/10 PAIN AT THE SITE DURING ASSESSMENT. PAIN WAS REDUCED TO 3/10 WITH PO PERCOCET. +1 EDEMA WAS ALSO OBSERVED ON LEFT ARM AROUND INCISION SITE. PATIENT HAD ONE LOOSE BOWEL MOVEMENT. NO OTHER ACUTE CHANGES.
[2021-09-20 08:30] LABS: Hematocrit 37.6 % (37.0-53.0); Hemoglobin 12.7 g/dL (13.5-17.5); Mean Corpuscular HGB Conc 33.8 g/dL (31.5-36.5); Mean Corpuscular Volume 98 fL (80-100); Mean Platelet Volume 10.4 fL (9.1-12.4); Platelet Count 318 K/mm3 (150-400); RDW Coefficient Variation 14.2 % (11.7-14.2); RDW Standard Deviation 50.7 fL (35.1-46.3); Red Blood Cell Count 3.85 M/mm3 (4.30-5.90); White Blood Cell Count 11.87 K/mm3 (4.00-11.30)
[2021-09-20 08:54] LABS: Anion Gap 6 mmol/L (6-16); Blood Urea Nitrogen 16 mg/dL (8-24); Bun/Creatinine Ratio 13.2 (12.0-20.0); CO2, Blood 28 mmol/L (21-32); Calcium, Blood 8.1 mg/dL (8.5-10.1); Chloride, Blood 103 mmol/L (98-108); Creatinine, Blood 1.21 mg/dL (0.60-1.20); Glomerular Filtration Rate >60 (60-); Glucose, Blood 92 mg/dL (70-99); Potassium, Blood 3.3 mmol/L (3.5-5.5); Sodium, Blood 137 mmol/L (136-145)
[2021-09-20 09:09] LABS: BAND PERCENT MAN 12 % (0-8); BASOPHILS PERCENT MAN 0 % (0-2); EOSINOPHILS PERCENT MAN 0 % (0-6); LYMPHOCYTES ABSOLUTE MAN 2.96 K/mm3 (0.84-5.20); LYMPHOCYTES PERCENT MAN 20 % (21-46); MONOCYTES ABSOLUTE MAN 0.83 K/mm3 (0.16-1.47); MONOCYTES PERCENT MAN 7 % (4-13); MYELOCYTE ABSOLUTE MAN 0.35 K/mm3 (0.00-0.00); MYELOCYTE PERCENT MAN 3 % (0-0); NEUTROPHILS ABSOLUTE MAN 7.71 K/mm3 (1.96-9.15); SEG NEUTROPHILS PERCENT MAN 53 % (41-73); TOTAL CELLS COUNTED 100
[2021-09-20 09:10] LABS: LYMPHOCYTES % ATYPICAL MANUAL 5 % (0-0)
--- NOTE | 2021-09-20 18:22 | NUR ---
SHIFT SUMMARY PT'S ALEJANDRO DRESSING FOUND TO HAVE SEROSANGINEOUS DRAINAGE PRESENT WHILE THE SEAL REMAINED DRY AND INTACT T/O SHIFT. PT'S PAIN CONTROLLED W/ PERCOCET ORDERED W/ TWO ADMINISTRATIONS T/O SHIFT. PT IS EATING WELL. PT IS ABLE TO VOID URINE W/O DIFFICULTY AND HAD ONE BM DURING THIS SHIFT. ALL OTHER MEDICATIONS GIVEN ORDERED T/O SHIFT. PT RESTING IN ROOM AT THIS TIME.
--- NOTE | 2021-09-21 06:28 | NUR ---
SHIFT SUMMARY POD3 ON HIS 2ND I&D PROCEDURE FOR L ARM INFECTION. REPORTS MODERATE PAIN T/O SHIFT, PAIN MANAGED WITH PERCOCET AND TYLENOL. IV ABX INFUSING. SCD'S IN PLACD. URINAL ON BEDSIDE AT NIGHT. VOIDING WITHOUT ISSUES. TOLERATING PO INTAKE DENIES N/V. AMBULATES SBA. IV AT KVO. CALL LIGHT WITHIN REACH. WILL PROVIDE REPORT TO ONCOMING NURSE.
--- NOTE | 2021-09-21 16:18 | NUR ---
SHIFT SUMMARY: POD 3 I&D LEFT ARM NO SIGNIFICANT CHANGES. PATIENT IS A&OX4. VS ARE WNL AND IS ON RA. PAIN IS MANAGED WITH PO PERCOCET. RE-DRESSED HIS ARM ALEJANDRO EARLIER TODAY AND HAS LIGHT DRAINING ON TOP BUT OTHERWISE INTACT. PATIENT HAS BASELINE NUMBNESS AND TINGLINGS IN HANDS THAT HAVEN'T CHANGED. SBA IN THE ROOM WITH HIS PERSONAL CANE. TOLERATING PO INTAKE AND IS VOIDING. CALL LIGHT WITHIN REACH. THE PLAN IS TO CONTINUE ABX AND PAIN MANAGEMENT.
--- NOTE | 2021-09-21 16:22 | NUR ---
SHIFT SUMMARY - POST OP DAY 3 FOR I&D OF LEFT ARM PT A&OX4. L ARM ELEVATED ON PILLOW. ALEJANDRO DRESSING CHANGED TODAY, LIGHT SHADOWING PRESENT, HAS NOT REACHED DRESSING BOARDERS. PAIN MANAGED PER EMAR. N/T IN EXTREMITIES FROM PRIOR CERVICAL FX. USES URINAL ON BEDSIDE, ABLE TO AMBULATE TO BEDSIDE COMMODE WITH SBA. TOLERATING PO INTAKE, NO NAUSEA/VOMITING. CALL LIGHT WITHIN REACH.
[2021-09-22 04:19] LABS: Hematocrit 36.8 % (37.0-53.0); Hemoglobin 12.3 g/dL (13.5-17.5); Mean Corpuscular HGB 33.1 pg (26.0-34.0); Mean Corpuscular HGB Conc 33.4 g/dL (31.5-36.5); Mean Corpuscular Volume 99 fL (80-100); Mean Platelet Volume 10.2 fL (9.1-12.4); Platelet Count 350 K/mm3 (150-400); RDW Coefficient Variation 14.5 % (11.7-14.2); RDW Standard Deviation 52.7 fL (35.1-46.3); Red Blood Cell Count 3.72 M/mm3 (4.30-5.90); White Blood Cell Count 9.23 K/mm3 (4.00-11.30)
[2021-09-22 04:44] LABS: Albumin, Blood 2.1 g/dL (3.4-5.0); Anion Gap 6 mmol/L (6-16); Blood Urea Nitrogen 14 mg/dL (8-24); Bun/Creatinine Ratio 11.8 (12.0-20.0); CO2, Blood 28 mmol/L (21-32); Calcium, Blood 8.5 mg/dL (8.5-10.1); Chloride, Blood 103 mmol/L (98-108); Creatinine, Blood 1.19 mg/dL (0.60-1.20); Glomerular Filtration Rate >60 (60-); Glucose, Blood 84 mg/dL (70-99); Phosphorus, Blood 3.4 mg/dL (2.5-4.9); Potassium, Blood 3.5 mmol/L (3.5-5.5); Sodium, Blood 137 mmol/L (136-145)
--- NOTE | 2021-09-22 08:38 | NUR ---
SUMMARY PT HOPING FOR DISCHARGE TODAY.SITTING UP IN CHAIR.
[2021-09-22] MEDS ORDERED: Percocet 5-3251 EACH PO (11:41)
[2021-09-22] MEDS ORDERED: MIRALAX17 GM PO (11:43)
[2021-09-22] MEDS ORDERED: VISBIOME 112.51 EACH PO (11:43)
[2021-09-22] MEDS ORDERED: AMOCLA875 PO (11:44)
--- NOTE | 2021-09-22 13:47 | NUR ---
DISCHARGE SUMMARY: A&Ox4. VSS. AMBULATING WITHIN ROOM USING CANE. SERINA PO INTAKE. REC'D SHOWER. ALEJANDRO DRESSING REMOVED AND AQUACEL PLACED. PROVIDED WITH ADDITIONAL WOUND CARE SUPPLIES AND INST TO F/U W/ HCP. PAIN WELL MANAGED WITH PO MED AND PROVIDED WITH RX FOR HOME USE. LAST DOSE GIVEN 829. PT LEFT UNIT VIA SN ESCORT TO PARKING LOT FOR TRANSPORTATION WITH ALL BELONGINGS, RX AND DC PAPERWORK.
== END 2021-09-22 13:20 | disposition home or self-care (01) | DRG 853 ==
LOC: ER 11:56 → SURS 15:40 → PCU 15:40 → SURS 09-18 17:28
PROVIDERS: Anesthesiology; Internal Medicine; Orthopaedic Surgery; Physician Assistant; Student in an Organized Health Care Education/Training Program; ADMIT Internal Medicine
PROC: 3E03329 Introduction of Other Anti-infective into Peripheral Vein, Percutaneous Approach (ICD-10-PCS; 2021-09-15)
PROC: 0PBL0ZZ Excision of Left Ulna, Open Approach (ICD-10-PCS; principal; 2021-09-15 16:15)
PROC: 0JQH0ZZ Repair Left Lower Arm Subcutaneous Tissue and Fascia, Open Approach (ICD-10-PCS; 2021-09-18)
DX: A40.0 Sepsis due to streptococcus, group A (principal); M72.6 Necrotizing fasciitis; T81.32XA Disruption of internal operation (surgical) wound, not elsewhere classified, initial encounter; Z20.822 Contact with and (suspected) exposure to COVID-19; R65.20 Severe sepsis without septic shock; M54.9 Dorsalgia, unspecified; J43.9 Emphysema, unspecified; G89.29 Other chronic pain; I10 Essential (primary) hypertension; Z87.81 Personal history of (healed) traumatic fracture; Z87.891 Personal history of nicotine dependence; Z98.42 Cataract extraction status, left eye; E83.39 Other disorders of phosphorus metabolism; E87.6 Hypokalemia; Y83.8 Other surgical procedures as the cause of abnormal reaction of the patient, or of later complication, without mention of misadventure at the time of the procedure
CPT/HCPCS: 0241U; 36415; 73080; 73201; 80053; 80069; 80202; 83605; 83735; 84100; 85025; 85027; 85610; 85730; 86140; 87040; 87070; 87075; 87147; 87205; 93005; 93010; 96365; 96367; 96375; 99285-25; A9270; J1100; J1650; J2250; J2270; J2405; J2543; J2704; J3010; J3370; J3475; J3480; J7030; J7040; J7050; J7060; J7120; Q9967

== ENCOUNTER 2021-09-28 12:16 | Emergency (ER) | payer MEDICARE, OTHER ==
[~2021-09-28] VITALS: Ht 188 cm; Wt 90.7 kg
[~2021-09-28 12:16] MED LIST changes: +AMOCLA875 PO; +CYCLOBENZAPRINE5 MG PO; +HYDROCODONE-AC1 EAC7 PO; +MIRALAX17 GM PO; +Percocet 5-3251 EACH PO; +VISBIOME 112.51 EACH PO
[2021-09-28 12:54] LABS: BASOPHILS ABSOLUTE AUTO 0.09 K/mm3 (0.00-0.23); BASOPHILS PERCENT AUTO 1 % (0-2); EOSINOPHILS ABSOLUTE AUTO 0.02 K/mm3 (0.00-0.68); EOSINOPHILS PERCENT AUTO 0 % (0-6); Hematocrit 35.7 % (37.0-53.0); Hemoglobin 11.7 g/dL (13.5-17.5); IMMATURE GRAN ABSOLUTE AUTO 0.06 K/mm3 (0.00-0.10); IMMATURE GRAN PERCENT AUTO 1 % (0-1); LYMPHOCYTES ABSOLUTE AUTO 1.48 K/mm3 (0.84-5.20); LYMPHOCYTES PERCENT AUTO 20 % (21-46); MONOCYTES ABSOLUTE AUTO 0.46 K/mm3 (0.16-1.47); MONOCYTES PERCENT AUTO 6 % (4-13); Mean Corpuscular HGB 33.6 pg (26.0-34.0); Mean Corpuscular HGB Conc 32.8 g/dL (31.5-36.5); Mean Corpuscular Volume 103 fL (80-100); Mean Platelet Volume 9.8 fL (9.1-12.4); NEUTROPHILS ABSOLUTE AUTO 5.38 K/mm3 (1.96-9.15); NEUTROPHILS PERCENT AUTO 72 % (41-73); Platelet Count 388 K/mm3 (150-400); RDW Coefficient Variation 15.7 % (11.7-14.2); RDW Standard Deviation 58.4 fL (35.1-46.3); Red Blood Cell Count 3.48 M/mm3 (4.30-5.90); White Blood Cell Count 7.49 K/mm3 (4.00-11.30)
[2021-09-28 13:20] LABS: Alanine Aminotransfer (ALT/SGP 36 U/L (12-78); Albumin, Blood 2.6 g/dL (3.4-5.0); Albumin/Globulin Ratio 0.5 (0.8-1.8); Alk Phos 158 U/L (50-136); Anion Gap 7 mmol/L (6-16); Aspartate Aminotrans (AST/SGOT 34 U/L (12-37); Bilirubin, Total 0.3 mg/dL (0.1-1.0); Blood Urea Nitrogen 6 mg/dL (8-24); Bun/Creatinine Ratio 8.6 (12.0-20.0); CO2, Blood 25 mmol/L (21-32); Calcium, Blood 8.6 mg/dL (8.5-10.1); Chloride, Blood 110 mmol/L (98-108); Globulin, Blood 4.8 g/dL (2.2-4.0); Glomerular Filtration Rate >60 (60-); Glucose, Blood 127 mg/dL (70-99); Potassium, Blood 3.4 mmol/L (3.5-5.5); Sodium, Blood 142 mmol/L (136-145); Total Protein, Blood 7.4 g/dL (6.4-8.2)
[2021-09-28] MEDS ORDERED: AMOCLA875 PO (19:52)
== END 2021-09-28 20:05 | disposition home or self-care (01) ==
LOC: ER 12:16
PROVIDERS: Physician Assistant
DX: L03.114 Cellulitis of left upper limb (principal); M72.8 Other fibroblastic disorders; I10 Essential (primary) hypertension; Z87.891 Personal history of nicotine dependence; Z88.1 Allergy status to other antibiotic agents; Z79.899 Other long term (current) drug therapy
CPT/HCPCS: 36415; 73201; 80053; 85025; A9270; Q9967